=== PATIENT | female | born 1945 | race Caucasian/White ===

== ENCOUNTER 2023-07-21 13:57 | Emergency (ER) | payer OTHER ==
[2023-07-21 14:09] VITALS: BP 126/56; PULSE 82; RESP 16; TEMP 99.4; BMI 31.4
[2023-07-21] MEDS ORDERED: ACETAMINOPHEN 325 MG TABLET (FP) PO ONE (14:48)
[2023-07-21] MEDS ORDERED: ACETAMINOPHEN 325 MG TABLET (FP) ONE (15:06)
== END 2023-07-21 17:00 | disposition home or self-care (01) ==
LOC: JER 13:57
DX: M25.561 Pain in right knee (principal); R22.41 Localized swelling, mass and lump, right lower limb; M25.461 Effusion, right knee
CPT/HCPCS: 73562-TC-RT-FY; 99283-25